=== PATIENT | female | born 1970 | race African-American/Black ===

== ENCOUNTER → 2022-05-08 | Day surgery (SDC) | payer OTHER ==
[~2022-05-08] VITALS: Ht 169.9 cm; Wt 108.9 kg
[~2022-05-08] MED LIST: ALPRAZOLAM 1MG T1 MG PO; LASIX20 MG PO; LOSARTAN POTASS50 MG PO; VENLAFAXINE HC150 MG PO
[2022-05-08 12:37] LABS: HCT 34.4 % (37.0-47.0); HGB 11.2 g/dl (12.5-16.0); MCH 24.5 pg (25.0-31.0); MCHC 32.6 g/dL (32.0-36.0); MCV 75.3 fL (78.0-100.0); MPV 10.4 fL (6.0-9.5); RBC 4.57 M/uL (4.20-5.40); RDW 15.7 % (11.5-14.0); WBC 10.1 K/uL (4.0-10.5)
[2022-05-08 13:04] LABS: ALBUMIN 3.4 g/dL (3.4-5.0); BILIRUBIN - TOTAL 0.4 mg/dL (0.2-1.0); BUN/CREAT RATIO (CALC) 13.3 RATIO; CREATININE 0.6 mg/dL (0.51-0.95); GLOBULIN (CALCULATION) 4.1 g/dL; POTASSIUM 3.6 mmol/L (3.5-5.1); TOTAL PROTEIN 7.5 g/dL (6.4-8.2)
== END | disposition home or self-care (01) ==
LOC: FAS 11:58
PROVIDERS: Orthopaedic Surgery
DX: S86.022A Laceration of left Achilles tendon, initial encounter (principal); X58.XXXA Exposure to other specified factors, initial encounter; G89.18 Other acute postprocedural pain; I10 Essential (primary) hypertension; G47.30 Sleep apnea, unspecified; F41.9 Anxiety disorder, unspecified; F17.200 Nicotine dependence, unspecified, uncomplicated; Z88.8 Allergy status to other drugs, medicaments and biological substances; Z79.899 Other long term (current) drug therapy
CPT/HCPCS: 36415; 71045; 80053; 93005; J0360; J0690; J0735; J1100; J1885; J2250; J2405; J2704; J2795; J3010; J7120

== ENCOUNTER → 2022-07-03 | Day surgery (SDC) | payer OTHER ==
[~2022-07-03] VITALS: Ht 167.6 cm; Wt 95.2 kg
[~2022-07-03] MED LIST changes: +ADVIL200 M1 PO
--- NOTE | 2022-07-03 12:22 | NUR ---
1200 PATIENT STATES WHE SEEING PCP REGARDING BLOOD PRESSURE CONTROL. AWARE IT HAS BEEN ELEVATED. INSTRUCTED PATIENT TO TAKE MEDICATION UPON ARRIVAL HOME AND FOLLOW UP WITH PCP.
== END | disposition home or self-care (01) ==
LOC: FAS 07:59
DX: M16.11 Unilateral primary osteoarthritis, right hip (principal); S86.092A Other specified injury of left Achilles tendon, initial encounter; X58.XXXA Exposure to other specified factors, initial encounter; I10 Essential (primary) hypertension; F17.200 Nicotine dependence, unspecified, uncomplicated; Z88.5 Allergy status to narcotic agent; Z79.899 Other long term (current) drug therapy
CPT/HCPCS: 76000; J1040; J2250; J2704; J3010; J7120; Q9967